=== PATIENT | female | born 1985 | race Caucasian/White ===

== ENCOUNTER → 2018-03-04 | Outpatient (CLI) | payer OTHER ==
[~2018-03-04] MED LIST: AMOX500 PO; BUSP5; CEPH500 PO; DOXY100 PO; DULO60 PO; HYDACE5 PO; IBUP600 PO; LORA1 PO; MEDR150I IM; MULVITMINE PO; NAPR500 PO; ONDA8ODT MM; OXYACE5T PO; PROM25 PO; RXHYDACE PO; TRAM50 PO; TRAZ100 PO
== END ==
LOC: LAB SHORT 17:13 → LAB 17:13
DX: Z34.83 Encounter for supervision of other normal pregnancy, third trimester (principal)
CPT/HCPCS: 87081; 87653

== ENCOUNTER 2018-03-19 16:40 | Inpatient (IN) | payer OTHER ==
[~2018-03-19] VITALS: Ht 157.5 cm; Wt 74.1 kg
[2018-03-19 18:28] LABS: U Amphetamine Screen Not Detected; U Barbituate Screen Not Detected; U Benzodiazapine Screen Not Detected; U Buprenorphine Screen Not Detected; U Cannabinoids Screen Not Detected; U Cocaine Screen Not Detected; U Methadone Screen Not Detected; U Methamphetamine Screen Not Detected; U Opiates Screen Not Detected; U Oxycodone Screen Not Detected; U Phencyclidine Screen Not Detected; U Propoxyphene Screen Not Detected
[2018-03-19 18:56] LABS: BASOPHILS ABSOLUTE AUTO 0.03 K/mm3 (0.00-0.23); BASOPHILS PERCENT AUTO 0 % (0-2); EOSINOPHILS ABSOLUTE AUTO 0.11 K/mm3 (0.00-0.68); EOSINOPHILS PERCENT AUTO 1 % (0-6); Hematocrit 37.5 % (33.0-51.0); Hemoglobin 12.3 g/dL (11.5-16.0); IMMATURE GRAN ABSOLUTE AUTO 0.04 K/mm3 (0.00-0.10); IMMATURE GRAN PERCENT AUTO 0 % (0-1); LYMPHOCYTES ABSOLUTE AUTO 1.93 K/mm3 (0.84-5.20); LYMPHOCYTES PERCENT AUTO 15 % (21-46); MONOCYTES ABSOLUTE AUTO 1.33 K/mm3 (0.16-1.47); MONOCYTES PERCENT AUTO 10 % (4-13); Mean Corpuscular HGB 27.6 pg (26.0-34.0); Mean Corpuscular HGB Conc 32.8 g/dL (31.5-36.5); Mean Corpuscular Volume 84 fL (80-100); NEUTROPHILS ABSOLUTE AUTO 9.69 K/mm3 (1.96-9.15); NEUTROPHILS PERCENT AUTO 74 % (41-73); Platelet Count 218 K/mm3 (150-400); RDW Coefficient Variation 18.1 % (11.7-14.2); RDW Standard Deviation 55.1 fL (35.1-46.3); Red Blood Cell Count 4.46 M/mm3 (3.80-5.20); White Blood Cell Count 13.13 K/mm3 (4.00-11.30)
[2018-03-19] MEDS ORDERED: BUSP5 PO (19:53)
[2018-03-19] MEDS ORDERED: Vitamin C100 M1 PO (19:53)
[2018-03-19] MEDS ORDERED: TUMS X-STR300 MG PO (19:54)
[2018-03-19] MEDS ORDERED: DOCU100 PO (19:54)
[2018-03-19] MEDS ORDERED: Verotin-Gr Cap1 EACH PO (19:55)
[2018-03-21 05:35] LABS: BASOPHILS ABSOLUTE AUTO 0.05 K/mm3 (0.00-0.23); BASOPHILS PERCENT AUTO 0 % (0-2); EOSINOPHILS ABSOLUTE AUTO 0.11 K/mm3 (0.00-0.68); EOSINOPHILS PERCENT AUTO 1 % (0-6); Hematocrit 32.5 % (33.0-51.0); Hemoglobin 10.7 g/dL (11.5-16.0); IMMATURE GRAN ABSOLUTE AUTO 0.05 K/mm3 (0.00-0.10); IMMATURE GRAN PERCENT AUTO 0 % (0-1); LYMPHOCYTES ABSOLUTE AUTO 2.05 K/mm3 (0.84-5.20); LYMPHOCYTES PERCENT AUTO 13 % (21-46); MONOCYTES ABSOLUTE AUTO 1.38 K/mm3 (0.16-1.47); MONOCYTES PERCENT AUTO 9 % (4-13); Mean Corpuscular HGB Conc 32.9 g/dL (31.5-36.5); Mean Corpuscular Volume 85 fL (80-100); Mean Platelet Volume 10.3 fL (9.1-12.4); NEUTROPHILS ABSOLUTE AUTO 11.96 K/mm3 (1.96-9.15); NEUTROPHILS PERCENT AUTO 77 % (41-73); Platelet Count 182 K/mm3 (150-400); RDW Coefficient Variation 17.7 % (11.7-14.2); RDW Standard Deviation 54.5 fL (35.1-46.3); Red Blood Cell Count 3.82 M/mm3 (3.80-5.20)
== END 2018-03-22 11:40 | disposition home or self-care (01) | DRG 775 ==
LOC: OBS 16:40 → BC 16:45 → OBS 18:24 → BC 03-20 23:24
PROVIDERS: Registered Nurse Community Health
PROC: 10E0XZZ Delivery of Products of Conception, External Approach (ICD-10-PCS; principal; 2018-03-20)
PROC: 10907ZC Drainage of Amniotic Fluid, Therapeutic from Products of Conception, Via Natural or Artificial Opening (ICD-10-PCS; 2018-03-20)
PROC: 3E033VJ Introduction of Other Hormone into Peripheral Vein, Percutaneous Approach (ICD-10-PCS; 2018-03-20)
DX: O99.824 Streptococcus B carrier state complicating childbirth (principal); O40.3XX0 Polyhydramnios, third trimester, not applicable or unspecified; O24.429 Gestational diabetes mellitus in childbirth, unspecified control; Z3A.38 38 weeks gestation of pregnancy; Z37.0 Single live birth
CPT/HCPCS: 36415; 59025; 82947; 85025; J0290; J1885; J2210; J2590; J3010; J7120

== ENCOUNTER → 2019-01-09 | Outpatient (CLI) | payer OTHER ==
[~2019-01-09] MED LIST changes: +BUSP5 PO; +DOCU100 PO; +TUMS X-STR300 MG PO; +Verotin-Gr Cap1 EACH PO; +Vitamin C100 M1 PO
[2019-01-12 04:07] LABS: CHLAMYDIA TRACHOMATIS, NAA Negative (Negative); NEISSERIA GONORRHOEAE, NAA Negative (Negative)
== END ==
LOC: LAB 17:19 → LAB SHORT 17:19
PROVIDERS: Registered Nurse Community Health
DX: Z34.92 Encounter for supervision of normal pregnancy, unspecified, second trimester (principal)
CPT/HCPCS: 87491; 87591

== ENCOUNTER 2019-05-06 10:50 | Day surgery (SDC) | payer OTHER ==
[2019-05-10 10:52] LABS: Performing Lab VERACYTE; Test Name FNA
[2019-08-06] MEDS ORDERED: THERA1 EACH (14:06)
[2019-08-06] MEDS ORDERED: BUSP5 (14:06)
[2019-08-06] MEDS ORDERED: Camila0.35 MG (14:07)
== END 2019-05-06 22:49 | disposition home or self-care (01) ==
LOC: US 10:50
PROVIDERS: Registered Nurse Community Health
DX: E04.1 Nontoxic single thyroid nodule (principal); D64.9 Anemia, unspecified; F41.9 Anxiety disorder, unspecified
CPT/HCPCS: 10005

== ENCOUNTER → 2019-06-03 | Outpatient (CLI) | payer OTHER ==
[~2019-06-03] MED LIST changes: +Camila0.35 MG; +IBUP800 PO; +THERA1 EACH; +TUMS500 MG
== END ==
LOC: LAB 18:12 → LAB SHORT 18:12
DX: Z34.93 Encounter for supervision of normal pregnancy, unspecified, third trimester (principal)
CPT/HCPCS: 87081; 87653

== ENCOUNTER 2019-06-23 09:39 | Inpatient (IN) | payer OTHER ==
[~2019-06-23] VITALS: Ht 157.5 cm; Wt 73.0 kg
[~2019-06-23 09:39] MED LIST changes: -Camila0.35 MG; -IBUP800 PO; -THERA1 EACH; -TUMS500 MG
--- NOTE | 2019-06-23 09:40 | NUR ---
ADMIT PT HERE FOR INDUCTION ADMITTED, TO ROOM C/S STILL GOING - PT AND DAUGHTER GIVEN COUPONS FOR BREAKFAST AND WILL RETURN TO ROOM WHEN DONE.
[2019-06-23 11:42] LABS: BASOPHILS ABSOLUTE AUTO 0.03 K/mm3 (0.00-0.23); BASOPHILS PERCENT AUTO 0 % (0-2); EOSINOPHILS ABSOLUTE AUTO 0.05 K/mm3 (0.00-0.68); EOSINOPHILS PERCENT AUTO 1 % (0-6); Hematocrit 32.8 % (33.0-51.0); Hemoglobin 10.7 g/dL (11.5-16.0); IMMATURE GRAN ABSOLUTE AUTO 0.06 K/mm3 (0.00-0.10); IMMATURE GRAN PERCENT AUTO 1 % (0-1); LYMPHOCYTES PERCENT AUTO 15 % (21-46); MONOCYTES ABSOLUTE AUTO 0.54 K/mm3 (0.16-1.47); MONOCYTES PERCENT AUTO 6 % (4-13); Mean Corpuscular HGB 30.7 pg (26.0-34.0); Mean Corpuscular HGB Conc 32.6 g/dL (31.5-36.5); Mean Corpuscular Volume 94 fL (80-100); Mean Platelet Volume 10.7 fL (9.1-12.4); NEUTROPHILS ABSOLUTE AUTO 7.09 K/mm3 (1.96-9.15); NEUTROPHILS PERCENT AUTO 77 % (41-73); Platelet Count 183 K/mm3 (150-400); RDW Coefficient Variation 13.6 % (11.7-14.2); RDW Standard Deviation 46.6 fL (35.1-46.3); Red Blood Cell Count 3.48 M/mm3 (3.80-5.20); White Blood Cell Count 9.17 K/mm3 (4.00-11.30)
[2019-06-23] MEDS ORDERED: TUMS500 MG (12:37)
--- NOTE | 2019-06-24 01:14 | NUR ---
attempted to get pt up to ambulate to bathroom to void and shower. legs weak and unable to walk on own. assisted on chair to bathroom and pt transferred to toilet. Voided without difficulty, pericare assisted and pt returned to bed via chair.
[2019-06-24 05:43] LABS: BASOPHILS ABSOLUTE AUTO 0.04 K/mm3 (0.00-0.23); BASOPHILS PERCENT AUTO 0 % (0-2); EOSINOPHILS ABSOLUTE AUTO 0.15 K/mm3 (0.00-0.68); EOSINOPHILS PERCENT AUTO 1 % (0-6); Hematocrit 35.1 % (33.0-51.0); Hemoglobin 11.7 g/dL (11.5-16.0); IMMATURE GRAN ABSOLUTE AUTO 0.07 K/mm3 (0.00-0.10); IMMATURE GRAN PERCENT AUTO 0 % (0-1); LYMPHOCYTES ABSOLUTE AUTO 2.03 K/mm3 (0.84-5.20); LYMPHOCYTES PERCENT AUTO 12 % (21-46); MONOCYTES ABSOLUTE AUTO 1.63 K/mm3 (0.16-1.47); MONOCYTES PERCENT AUTO 9 % (4-13); Mean Corpuscular HGB 30.1 pg (26.0-34.0); Mean Corpuscular HGB Conc 33.3 g/dL (31.5-36.5); Mean Platelet Volume 10.7 fL (9.1-12.4); NEUTROPHILS ABSOLUTE AUTO 13.58 K/mm3 (1.96-9.15); NEUTROPHILS PERCENT AUTO 78 % (41-73); Platelet Count 183 K/mm3 (150-400); RDW Coefficient Variation 13.5 % (11.7-14.2); RDW Standard Deviation 43.7 fL (35.1-46.3); Red Blood Cell Count 3.89 M/mm3 (3.80-5.20)
[2019-06-24 05:45] LABS: Mean Corpuscular Volume 90 fL (80-100)
--- NOTE | 2019-06-24 21:06 | NUR ---
NUMBNESS IN BACK PATIENT STATES SHE IS EXPERIENCING SOME NUMBNESS IN HER LOWER BACK SIMILAR TO WHAT SHE EXPERIENCED WITH HER EPIDURAL
[2019-06-25] MEDS ORDERED: IBUP800 PO (08:57)
--- NOTE | 2019-06-25 15:11 | NUR ---
MATERNAL AND DISCHARGE INSTRUCTIONS REVIEWED WITH PATIENT. ALL QUESTIONS ANSWERED.
[2019-08-06] MEDS ORDERED: BUSP5 (14:06)
[2019-08-06] MEDS ORDERED: THERA1 EACH (14:06)
[2019-08-06] MEDS ORDERED: Camila0.35 MG (14:07)
== END 2019-06-25 10:45 | disposition home or self-care (01) | DRG 807 ==
LOC: OBS 09:39 → BC 09:40 → OBS 09:40 → BC 09:40 → OBS 09:56 → BC 09:56 → OBS 09:56 → BC 09:57 → OBS 10:00 → BC 10:00 → OBS 06-24 06:14 → BC 06-24 22:57
PROVIDERS: ADMIT Registered Nurse Community Health
PROC: 10E0XZZ Delivery of Products of Conception, External Approach (ICD-10-PCS; principal; 2019-06-23)
PROC: 10907ZC Drainage of Amniotic Fluid, Therapeutic from Products of Conception, Via Natural or Artificial Opening (ICD-10-PCS; 2019-06-23)
PROC: 3E033VJ Introduction of Other Hormone into Peripheral Vein, Percutaneous Approach (ICD-10-PCS; 2019-06-23)
DX: O24.429 Gestational diabetes mellitus in childbirth, unspecified control (principal); Z37.0 Single live birth; Z3A.39 39 weeks gestation of pregnancy; O99.824 Streptococcus B carrier state complicating childbirth
CPT/HCPCS: 36415; 51702; 85025; J0290; J1885; J2001; J2210; J2590; J3010; J7120

== ENCOUNTER 2019-08-15 08:57 | Day surgery (SDC) | payer OTHER ==
[~2019-08-15] VITALS: Ht 157.5 cm; Wt 67.1 kg
[~2019-08-15 08:57] MED LIST changes: +Camila0.35 MG; +IBUP800 PO; +THERA1 EACH; +TUMS500 MG
--- NOTE | 2019-08-15 10:43 | NUR ---
08/15/19 1043 Lakshmi Aguilar MULTIPLE BRIUSES NOTED ON BOTH FLANK AND RIGHT UPPER THIGH. LARGEST BEING THE SIZE OF A SILVER DOLLAR. ALL BRUISES HAVE SOME PURPLE TO THEM.
--- NOTE | 2019-08-15 12:10 | NUR ---
08/15/19 1210 Mayte Ramirez PT IS IN THE RECLINER AT THIS TIME. PT ACCOMPANIED BY HER BOYFRIEND AND BABY. VSS. PT STATES SHE IS "FEELING A LITTLE NAUSEATED." PT CURRENTLY RATES PAIN 6/10 IN THE ABDOMEN. PT HAS TOLERATED PO FLUIDS WELL. CALL LIGHT IN REACH.
== END 2019-08-15 12:40 | disposition home or self-care (01) ==
LOC: ORSCSDS 08:57
PROVIDERS: Obstetrics & Gynecology
PROC: 0UB74ZZ Excision of Bilateral Fallopian Tubes, Percutaneous Endoscopic Approach (ICD-10-PCS; principal; 2019-08-15 10:00)
DX: Z30.2 Encounter for sterilization (principal); N80.3 Endometriosis of pelvic peritoneum; E05.90 Thyrotoxicosis, unspecified without thyrotoxic crisis or storm; F41.8 Other specified anxiety disorders; Z79.899 Other long term (current) drug therapy; F17.210 Nicotine dependence, cigarettes, uncomplicated
CPT/HCPCS: 88302; J0171; J0690; J2250; J2405; J2704; J2710; J3010; J7120

== ENCOUNTER 2019-09-13 09:35 | Emergency (ER) | payer OTHER ==
[~2019-09-13] VITALS: Ht 157.5 cm; Wt 68.0 kg
[2019-09-13] MEDS ORDERED: HYDR1TAB94 PO (10:39)
[2019-09-13] MEDS ORDERED: IBUP800 PO (10:39)
[2019-09-13] MEDS ORDERED: CRUTCH4 XX (10:42)
== END 2019-09-13 10:48 | disposition home or self-care (01) ==
LOC: ER 09:35
DX: M23.91 Unspecified internal derangement of right knee (principal); F17.210 Nicotine dependence, cigarettes, uncomplicated
CPT/HCPCS: 29505; 73564; 99283-25

== ENCOUNTER 2019-10-05 12:39 | Emergency (ER) | payer OTHER ==
[~2019-10-05] VITALS: Ht 157.5 cm; Wt 63.5 kg
[~2019-10-05 12:39] MED LIST changes: +CRUTCH4 XX; +HYDR1TAB94 PO
[2019-10-05] MEDS ORDERED: HYDR1TAB94 PO (13:27)
[2019-10-05] MEDS ORDERED: NAPR550 PO (13:27)
== END 2019-10-05 13:34 | disposition home or self-care (01) ==
LOC: ER 12:39
DX: S86.911A Strain of unspecified muscle(s) and tendon(s) at lower leg level, right leg, initial encounter (principal); F41.9 Anxiety disorder, unspecified; F17.210 Nicotine dependence, cigarettes, uncomplicated; Z85.41 Personal history of malignant neoplasm of cervix uteri; Z79.899 Other long term (current) drug therapy; W10.9XXA Fall (on) (from) unspecified stairs and steps, initial encounter
CPT/HCPCS: 73564; 99283-25

== ENCOUNTER → 2020-02-05 | Outpatient (CLI) | payer OTHER ==
[~2020-02-05] MED LIST changes: +NAPR550 PO
[2020-02-09 14:07] LABS: HPV 16 Negative (Negative); HPV 18 Negative (Negative); HPV OTHER HR TYPES Negative (Negative)
== END ==
LOC: LAB UCHC 15:16 → LAB SHORT 15:16
PROVIDERS: Registered Nurse Community Health
DX: Z12.4 Encounter for screening for malignant neoplasm of cervix (principal)
CPT/HCPCS: 87624; G0123

== ENCOUNTER → 2023-10-22 | Outpatient (CLI) | payer OTHER ==
[~2023-10-22] MED LIST changes: +ONDA4ODT SL
[2023-10-22 16:05] LABS: G. vaginalis (DNA Probe) Positive (NEGATIVE); T. vaginalis (DNA Probe) Negative (NEGATIVE)
[2023-10-22 16:06] LABS: Candida species (DNA Probe) Negative (NEGATIVE)
[2023-10-24 09:14] LABS: HEPATITIS B SURFACE ANTIGEN Negative (Negative)
[2023-10-24 11:08] LABS: HEPATITIS C AB CIA INTERP Negative (Negative); HEPATITIS C ANTIBODY CIA INDEX 0.08 IV
[2023-10-24 11:58] LABS: HIV 1,2 COMBO ANTIGEN/ANTIBODY Negative (Negative)
[2023-10-24 22:50] LABS: APTIMA MEDIA TYPE MultiTest Swab; C. TRACHOMATIS BY TMA Negative (Negative); N. GONORRHOEAE BY TMA Negative (Negative); SPECIMEN SOURCE Not Provided; T. VAGINALIS BY TMA Negative (Negative)
== END | disposition home or self-care (01) ==
LOC: LAB SHORT 13:32 → LAB 13:32
PROVIDERS: Registered Nurse Community Health
DX: Z11.3 Encounter for screening for infections with a predominantly sexual mode of transmission (principal); N89.8 Other specified noninflammatory disorders of vagina
CPT/HCPCS: 86592; 86803; 87340; 87389; 87480; 87491; 87510; 87591; 87660; 87661

== ENCOUNTER 2024-03-26 15:52 | Observation (INO) | payer OTHER ==
[~2024-03-26] VITALS: Ht 157.5 cm; Wt 57.4 kg
[2024-03-27 07:43] VITALS: BP 124/93
== END 2024-03-27 13:00 | disposition home or self-care (01) ==
LOC: ER 15:52 → ERHOLD 15:53 → PCU 03-27 00:29
PROVIDERS: ADMIT Internal Medicine
DX: R11.2 Nausea with vomiting, unspecified (principal); F10.90 Alcohol use, unspecified, uncomplicated; E86.0 Dehydration; E87.5 Hyperkalemia; E87.20 Acidosis, unspecified; C53.9 Malignant neoplasm of cervix uteri, unspecified; F17.210 Nicotine dependence, cigarettes, uncomplicated; Y90.9 Presence of alcohol in blood, level not specified

== ENCOUNTER → 2024-06-05 | Outpatient (CLI) | payer OTHER ==
[~2024-06-05] MED LIST changes: +ONDA4ODT MM
[2024-06-05 19:50] LABS: Candida Group, PCR NOT DETECTED (NOT DETECT)
[2024-06-05 20:51] LABS: Bacterial Vaginosis PCR Positive (NEGATIVE); Candida glabrata-krusei, PCR DETECTED (NOT DETECT)
[2024-06-10 17:51] LABS: APTIMA MEDIA TYPE Unisex Swab; C. TRACHOMATIS BY TMA Negative (Negative); N. GONORRHOEAE BY TMA Negative (Negative); SPECIMEN SOURCE Not Provided; T. VAGINALIS BY TMA Positive (Negative)
== END ==
LOC: LAB 13:46 → LAB SHORT 13:46
PROVIDERS: Emergency Medicine
DX: N39.0 Urinary tract infection, site not specified (principal); N89.8 Other specified noninflammatory disorders of vagina
CPT/HCPCS: 87077; 87086; 87147; 87186; 87481; 87491; 87591; 87661; 87801

== ENCOUNTER 2024-09-24 16:26 | Emergency (ER) | payer OTHER ==
[~2024-09-24] VITALS: Ht 157.5 cm; Wt 54.4 kg
[~2024-09-24 16:26] MED LIST changes: +B-1100 M2 PO; +DULOXETINE HCL60 M1 PO; +GABA300 PO; +Hydroxyzine HCl50 MG PO; +PRAZ2 PO
[2024-09-24] MEDS ORDERED: NS 1,000 ML IV SCH (16:45)
[2024-09-24] MEDS ORDERED: Ondansetron HCl 2 MG / ML 2ML Vial IV ONE ×2 (16:45→19:20)
[2024-09-24 17:15] LABS: BASOPHILS ABSOLUTE AUTO 0.06 K/mm3 (0.00-0.23); BASOPHILS PERCENT AUTO 0 % (0-2); EOSINOPHILS ABSOLUTE AUTO 0.15 K/mm3 (0.00-0.68); EOSINOPHILS PERCENT AUTO 1 % (0-6); Hematocrit 45.9 % (33.0-51.0); Hemoglobin 16.3 g/dL (11.5-16.0); IMMATURE GRAN ABSOLUTE AUTO 0.06 K/mm3 (0.00-0.10); IMMATURE GRAN PERCENT AUTO 0 % (0-1); LYMPHOCYTES ABSOLUTE AUTO 2.01 K/mm3 (0.84-5.20); LYMPHOCYTES PERCENT AUTO 14 % (21-46); MONOCYTES ABSOLUTE AUTO 1.26 K/mm3 (0.16-1.47); MONOCYTES PERCENT AUTO 9 % (4-13); Mean Corpuscular HGB Conc 35.5 g/dL (31.5-36.5); Mean Corpuscular Volume 99 fL (80-100); Mean Platelet Volume 9.9 fL (9.1-12.4); NEUTROPHILS ABSOLUTE AUTO 10.97 K/mm3 (1.96-9.15); NEUTROPHILS PERCENT AUTO 76 % (41-73); Platelet Count 318 K/mm3 (150-400); RDW Coefficient Variation 15.4 % (11.7-14.2); RDW Standard Deviation 56.1 fL (35.1-46.3); Red Blood Cell Count 4.66 M/mm3 (3.80-5.20); White Blood Cell Count 14.51 K/mm3 (4.00-11.30)
[2024-09-24 17:37] LABS: Alanine Aminotransfer (ALT/SGP 17 U/L (12-78); Albumin, Blood 4.1 g/dL (3.4-5.0); Albumin/Globulin Ratio 1.1 (0.8-1.8); Alk Phos 68 U/L (50-136); Anion Gap 11 mmol/L (3-11); Aspartate Aminotrans (AST/SGOT 31 U/L (12-37); Bilirubin, Total 0.8 mg/dL (0.1-1.0); Blood Urea Nitrogen 6 mg/dL (8-24); Bun/Creatinine Ratio 9.6 (12.0-20.0); CO2, Blood 28 mmol/L (21-32); Calcium, Blood 9.8 mg/dL (8.5-10.1); Chloride, Blood 102 mmol/L (98-108); Creatinine, Blood 0.63 mg/dL (0.40-1.00); Ethanol (Alcohol), Blood, Med <3 mg/dL; Globulin, Blood 3.9 g/dL (2.2-4.0); Glomerular Filtration Rate 118 (60-); Glucose, Blood 96 mg/dL (70-99); Magnesium, Blood 1.5 mg/dL (1.6-2.4); Phosphorus, Blood 3.7 mg/dL (2.5-4.9); Potassium, Blood 3.6 mmol/L (3.5-5.5); Sodium, Blood 137 mmol/L (136-145)
[2024-09-24] MEDS ORDERED: Lactated Ringer's 1,000 ML IV ONE (19:20)
[2024-09-24] MEDS ORDERED: Multivitamins 1 Tab PO ONE (19:20)
[2024-09-24] MEDS ORDERED: Diazepam 5 MG / ML 2ML SYR IV ONE ×2 (19:20→21:00)
[2024-09-24] MEDS ORDERED: Metoclopramide HCl 5MG / ML 2ML Vial IV ONE (21:05)
[2024-09-24 22:30] VITALS: BP 108/63
[2024-09-24] MEDS ORDERED: Acetaminophen 325 MG TABLET PO ONE (22:50)
== END 2024-09-24 22:51 | disposition home or self-care (01) ==
LOC: ER 16:26
PROVIDERS: Physician Assistant
DX: F10.939 Alcohol use, unspecified with withdrawal, unspecified (principal); E86.0 Dehydration; F17.210 Nicotine dependence, cigarettes, uncomplicated; Z79.899 Other long term (current) drug therapy
CPT/HCPCS: 71045; 80053; 80320; 83690; 83735; 84100; 84484; 85025; 93005; 93010; 96361; 96374; 96375; 96376; 99284-25; A9270; J2405; J2765; J3360; J7120

== ENCOUNTER → 2024-10-22 | Outpatient (CLI) | payer OTHER ==
[2024-10-22 15:54] LABS: Candida Group, PCR NOT DETECTED (NOT DETECT); Candida glabrata-krusei, PCR NOT DETECTED (NOT DETECT)
[2024-10-22 15:55] LABS: Bacterial Vaginosis PCR Positive (NEGATIVE)
[2024-10-22 16:30] LABS: Chlamydia Trachomatis Vaginal NOT DETECTED (NOT DETECT); Neisseria Gonorrhoea Vaginal NOT DETECTED (NOT DETECT)
== END | disposition home or self-care (01) ==
LOC: LAB 12:55 → LAB SHORT 12:55
PROVIDERS: Registered Nurse Community Health
DX: N89.8 Other specified noninflammatory disorders of vagina (principal)
CPT/HCPCS: 87481; 87491; 87591; 87661; 87801

== ENCOUNTER 2024-11-06 13:07 | Emergency (ER) | payer OTHER ==
[~2024-11-06] VITALS: Ht 157.5 cm; Wt 54.4 kg
[2024-11-06 13:42] VITALS: BP 119/92
[2024-11-06] MEDS ORDERED: Ketorolac Tromethamine 15mg Vial IM ONE (14:10)
== END 2024-11-06 15:46 | disposition home or self-care (01) ==
LOC: ER 13:07
DX: S93.401A Sprain of unspecified ligament of right ankle, initial encounter (principal); M25.512 Pain in left shoulder; G43.909 Migraine, unspecified, not intractable, without status migrainosus; F17.210 Nicotine dependence, cigarettes, uncomplicated; Z79.899 Other long term (current) drug therapy; Z59.89 Other problems related to housing and economic circumstances; W10.9XXA Fall (on) (from) unspecified stairs and steps, initial encounter
CPT/HCPCS: 73030; 96372; 99283-25; J1885

== ENCOUNTER → 2024-12-18 | Outpatient (CLI) | payer OTHER ==
[2024-12-18 16:29] LABS: Bacterial Vaginosis PCR Negative (NEGATIVE); Candida Group, PCR NOT DETECTED (NOT DETECT); Candida glabrata-krusei, PCR NOT DETECTED (NOT DETECT)
[2024-12-18 17:00] LABS: Chlamydia Trachomatis Vaginal NOT DETECTED (NOT DETECT); Neisseria Gonorrhoea Vaginal NOT DETECTED (NOT DETECT)
== END | disposition home or self-care (01) ==
LOC: LAB SHORT 12:49 → LAB 12:49
PROVIDERS: Registered Nurse Community Health
DX: N89.8 Other specified noninflammatory disorders of vagina (principal); R30.0 Dysuria
CPT/HCPCS: 81515; 87086; 87491; 87591

== ENCOUNTER 2025-02-18 15:51 | Emergency (ER) | payer OTHER ==
[~2025-02-18] VITALS: Ht 157.5 cm; Wt 52.2 kg
[2025-02-18 16:00] VITALS: BP 113/79
[2025-02-18] MEDS ORDERED: HYDROCODONE-AC1 EA10 PO (16:18)
== END 2025-02-18 16:18 | disposition home or self-care (01) ==
LOC: ER 15:51
DX: M25.561 Pain in right knee (principal); F17.210 Nicotine dependence, cigarettes, uncomplicated; Z79.899 Other long term (current) drug therapy
CPT/HCPCS: 29505; 99283-25

== ENCOUNTER → 2025-10-20 | Outpatient (CLI) | payer OTHER ==
[~2025-10-20] MED LIST changes: +HYDROCODONE-AC1 EA10 PO; +Robaxin750 MG PO
== END ==
LOC: LAB 17:40 → LAB SHORT 17:40
DX: Z12.4 Encounter for screening for malignant neoplasm of cervix (principal)
CPT/HCPCS: 87624; G0145